=== PATIENT | male | born 1970 | race Caucasian/White ===

== ENCOUNTER 2023-01-07 14:20 | Emergency (ER) | payer MEDICAID, SELFPAY ==
[2023-01-07] VITALS (11 sets, daily range): BP systolic 80–133; BP diastolic 48–111; PULSE 77–118; RESP 18–102; TEMP 35.5; O2SAT 91–99; BMI 43.0
--- NOTE | 2023-01-07 14:33 | NURSING ---
NO OLD EKGS
--- NOTE | 2023-01-07 14:57 | EKG12_ITS ---
Test Reason : CP Blood Pressure : / mmHG Vent. Rate : 119 BPM Atrial Rate : 000 BPM P-R Int : 000 ms QRS Dur : 172 ms QT Int : 384 ms P-R-T Axes : 000 -70 095 degrees QTc Int : 540 ms Atrial fibrillation with rapid ventricular response Left axis deviation Non-specific intra-ventricular conduction block Minimal voltage criteria for LVH, may be normal variant ( [place] product ) Lateral infarct , age undetermined Inferior infarct , age undetermined Confirmed by CRISTIAN CALVERT ([id number]), metropolitan editor DALY MARES ([id number]) on 01/08/2023 11:23:21 AM Referred By: Confirmed By:CRISTIAN CALVERT
[2023-01-07 15:06] LABS: Absolute Neutrophil Count 5.2 X10^3/uL (2.0-7.7); Basophil# 0.04 X10^3/uL; Basophil% 0.5 % (0-1); Eosinophil# 0.24 X10^3/uL; Hematocrit 42.2 % (40-54); Hemoglobin 14.5 g/dL (13.0-16.5); Lymphocyte % 22.6 % (19-41); Mean Corp Hgb Conc 34.4 g/dL (32-36); Mean Corpuscular Hgb 29.8 pg (27.0-32.0); Mean Corpuscular Volume 86.7 fL (80-94); Mean Platelet Vol. 10.9 fl (6.2-12.0); Monocyte% 8.8 % (0-10); NRBC Flagged by Analyzer 0 % (0-5); Neutrophil # 5.16 X10^3/uL (2.7-7.7); Neutrophil % 64.7 % (47-70); Platelet Count 278 K/mm3 (150-450); RBC Distribution Width SD 43.9 fl (35.1-43.9); Red Blood Count 4.87 M/mm3 (4.6-6.2)
--- NOTE | 2023-01-07 15:14 | RAD_ITS ---
STUDY: X-RAY CHEST REASON FOR EXAM: Male, 52 years old. Chest pain TECHNIQUE: Single AP portable view of the chest. COMPARISON: None. FINDINGS: EKG electrodes are seen. The lungs are clear and expanded. There is no demonstrated pleural abnormality. There is mild cardiac enlargement. Normal mediastinum and vishal. Normal visualized pulmonary arteries. Normal visualized aortic arch and descending thoracic aorta. There are degenerative changes of the visualized thoracic spine. Normal visualized ribs, clavicles, and shoulders. There is no demonstrated abnormality of the visualized soft tissue structures of the upper abdomen. RAD/Chest 1 View (Portable) IMPRESSION: Cardiomegaly. Electronically Signed: Austin Spicer MD at 15:33 EDT ,
--- NOTE | 2023-01-07 15:18 | EDS_ITS ---
HPI History of Present Illness Chief Complaint: Chest Pain Narrative Narrative: 52-year-old male presenting with chest pain. He has a history of A-fib, [place], cardiac stent. He sees a cork compounder out in [place]. He states he is on sotalol and Eliquis. He states his heart rate is never really been under control. Yesterday he states about a pulse ox and noted his heart rate was anywhere from 50-1 80. He has been having intermittent chest pressure, shortness of breath, nausea, lightheadedness. Patient reports that when these episodes happen he gets a cough and has posttussive emesis sometimes. Denies fever or chills. He does admit to some shortness of breath. Patient states has been able to get follow-up with his cork compounder due to being unable to get into office. [facility] Medical History Afib Diabetes Home Medications apixaban 5 mg tablet (Eliquis) 5 mg PO Q12H 01/07/23 [History Last Taken Unknown] atorvastatin 40 mg tablet 40 mg PO DAILY 01/07/23 [History Last Taken Unknown] levothyroxine 50 mcg tablet 50 mcg PO DAILY 01/07/23 [History Last Taken
--- NOTE | 2023-01-07 15:18 | ED.VIS.CHEST ---
HPI History of Present Illness Chief Complaint: Chest Pain Narrative Narrative: 52-year-old male presenting with chest pain. He has a history of A-fib, [place], cardiac stent. He sees a pharmacy technician out in [place]. He states he is on sotalol and Eliquis. He states his heart rate is never really been under control. Yesterday he states about a pulse ox and noted his heart rate was anywhere from 50-1 80. He has been having intermittent chest pressure, shortness of breath, nausea, lightheadedness. Patient reports that when these episodes happen he gets a cough and has posttussive emesis sometimes. Denies fever or chills. He does admit to some shortness of breath. Patient states has been able to get follow-up with his pharmacy technician due to being unable to get into office. [facility] Medical History Afib Diabetes Home Medications apixaban 5 mg tablet (Eliquis) 5 mg PO Q12H 01/07/23 [History Last Taken Unknown] atorvastatin 40 mg tablet 40 mg PO DAILY 01/07/23 [History Last Taken Unknown] levothyroxine 50 mcg tablet 50 mcg PO DAILY 01/07/23 [History Last Taken Unknown] Allergy/AdvReac Type Severity Reaction Status Date / Time Penicillins Allergy Swelling Verified 01/07/23 14:23 sulfur dioxide Allergy Swelling Verified 01/07/23 14:23 Surgical History Stented coronary artery Social History Smoking Status: Never smoker ROS ROS ED Constitutional Constitutional ED: Denies chills, fever(s) or sweats Eyes Eyes: Denies blurry vision or change in vision ENT ENT ED: Denies ear pain or sore throat Cardiovascular Cardiovascular: Reports chest pain, palpitations and racing heartbeat Respiratory/Chest Respiratory/Chest: Reports cough and dyspnea; Denies sputum Gastrointestinal Gastrointestinal: Reports nausea and vomiting; Denies abdominal pain, constipation or diarrhea Genitourinary Genitourinary ED: Denies dysuria, hematuria or urinary frequency Musculoskeletal Musculoskeletal: Denies arthralgias, myalgias or neck pain Integumentary Denies abscess, Abrasions or rash Neurologic Neurologic: Denies headache(s), paresthesias or weakness Psychiatric Psychiatric: Denies anxiety, depression, suicidal ideation or suicidal thoughts Endocrine Endocrinology: Denies polydipsia or polyuria EXAM Physical Exam Const Vital Signs: 01/07/23 14:24 01/07/23 14:44 01/07/23 14:45 Temperature 96 F L Temperature Source Temporal Pulse Rate 104 H 118 H Respiratory Rate 18 18 Respiratory Effort Short of Breath Blood Pressure 121/111 H 124/80 H Blood Pressure Mean 114 94 Pulse Ox 96 94 Oxygen Delivery Method Room Air Room Air 01/07/23 15:01 01/07/23 15:23 01/07/23 15:31 Temperature Temperature Source Pulse Rate 107 H 116 H Respiratory Rate 31 H Respiratory Effort Blood Pressure 116/63 Blood Pressure Mean 80 Pulse Ox 93 Oxygen Delivery Method Room Air Room Air 01/07/23 15:36 01/07/23 15:36 01/07/23 15:49 Temperature Temperature Source Pulse Rate 104 H 109 H 103 H Respiratory Rate 29 H 26 H Respiratory Effort Blood Pressure 93/48 L 96/66 Blood Pressure Mean 63 76 Pulse Ox 91 93 Oxygen Delivery Method Room Air Room Air 01/07/23 16:10 01/07/23 16:12 Temperature Temperature Source Pulse Rate 92 Respiratory Rate 102 H Respiratory Effort Blood Pressure 80/57 L 83/62 L Blood Pressure Mean 64 69 Pulse Ox 98 Oxygen Delivery Method Room Air Positive well nourished General Appearance ED: NAD HEENT Reports moist mucous membranes normocephalic Eyes PERRL and EOMs intact bilaterally Resp normal respiratory effort Auscultation: Negative for rales, rhonchi or wheezes Cardio Rate: tachycardic Rhythm: abnormal rhythm irregularly irregular GI normal to inspection, nondistended, normoactive bowel sounds Neuro oriented x3 and CN's II-XII intact bilaterally Sensorium / Orientation: awake and alert Psych mental status grossly normal Skin no rashes or lesions noted Heart Score History: Slightly/Non-Suspicious ECG: Normal Age: >45 - <65 years Risk Factors: >/= 3 Risk Factors or History of CAD Troponin: </= Normal Limit Score: 3 MDM MDM MDM Narrative Medical decision making narrative: Patient presenting in A-fib which is going from 100-1 20 on the monitor. He is having chest pain intermittently as well as lightheadedness and dizziness. Differential includes acute coronary syndrome, CHF, pneumonia, dehydration, electrolyte abnormalities. PE considered however the patient is anticoagulated on Eliquis. EKG atrial fibrillation with rapid ventricular response at 119 bpm without sign of ischemic change. Chest x-ray my interpretation shows cardiomegaly. CBC was obtained to assess white blood cell count, hemoglobin, platelets. BMP to assess renal function, electrolytes, glucose. High-sensitivity troponin was ordered to assess for ischemia. Initially a D-dimer was ordered but after discussing this with the patient he was able to present a medicine list which showed he was on Eliquis and he had missed any doses. This was canceled however some reason it was still resulted. This is within normal limits. Patient got 10 mg of Cardizem and his blood pressure did drop for short while at 83/62 is now improving into the 90s. He was given a liter bolus and he is on a second liter now.I did want to be cautious as the patient has a history of cardiomyopathy after looking at his outside records and has a EF of 35%. Patient previously was on amiodarone therapy however this caused him to become hypothyroid and had to be switched to sotalol after admission. He supposed to have a follow-up with his pharmacy technician however he states he cannot get in. It was recommended if his repeat echo showed a EF of less than 35% that he get a DDDR ICD out of having risk for sudden . I discussed this with Dr. Jorge who felt the patient was complex and needed to be transferred to another facility. [facility] transfer line was paged as his previous work-up was in [facility] system. Impression: 1. Chest pain 2. Cardiomegaly 3. A-fib with RVR 4. History of cardiomyopathy Lab Data Attestation: I reviewed the patient's lab results. Labs: Laboratory Results - last 24 hr 01/07/23 15:00 WBC 8.0 RBC 4.87 Hgb 14.5 Hct 42.2 MCV 86.7 MCH 29.8 MCHC 34.4 RDW Std Deviation 43.9 RDW Coeff of Bernard 14.0 Plt Count 278 MPV 10.9 Immature Gran % (Auto) 0.400 Neut % (Auto) 64.7 Lymph % (Auto) 22.6 [place] % (Auto) 8.8 Eos % (Auto) 3.0 Baso % (Auto) 0.5 Absolute Neuts (auto) 5.2 Absolute Lymphs (auto) 1.80 Nucleated RBC % 0 D-Dimer Quant (PE/DVT) < 0.27 L Sodium 139 Potassium 3.8 Chloride 108 H Carbon Dioxide 22.0 Anion Gap 9 BUN 22 H Creatinine 1.26 Estim Creat Clear Calc 76.98 Est GFR (MDRD) Af Amer 78 Est GFR (MDRD) Non-Af 64 BUN/Creatinine Ratio 17.5 Glucose 176 H Calcium 9.7 Troponin I High Sens 60 Radiography Diagnostic Testing: Clinical Impression(s) from Imaging Studies Chest X-Ray 01/07/23 15:14 IMPRESSION: Cardiomegaly. Electronically Signed: Austin Spicer MD at 15:33 EDT , Discharge Plan Triage Chief Complaint: Chest Pain ED Provider: Bryan Ardon Dx/Rx/DC Orders Prescriptions: No Action atorvastatin 40 mg tablet 40 mg PO DAILY Patient Comments: Take 1 tablet by mouth daily at bedtime. levothyroxine 50 mcg tablet 50 mcg PO DAILY Patient Comments: TAKE 1 TABLET BY MOUTH ONCE DAILY Eliquis 5 mg tablet 5 mg PO Q12H Patient Comments: Take 1 tablet by mouth twice a day Primary Care Provider: Care Physician,No Primary Referrals: Care Physician,No Primary [Primary Care Provider] -
[2023-01-07 15:26] LABS: Anion Gap 9 (5-15); BUN 22 mg/dL (7-18); BUN/Creat Ratio 17.5 RATIO (10-20); Calcium,Total 9.7 mg/dL (8.5-10.1); Chloride 108 mmol/L (98-107); Creatinine, Serum 1.26 mg/dL (0.70-1.30); EST Glomerular Filtration Rate 64 mL/min (>60); Est Glom Filt Rate - Afr Amer 78 mL/min (>60); Estimated Creatinine Clearance 76.98 ml/min; Glucose 176 mg/dL (74-106); Potassium 3.8 mmol/L (3.5-5.1); Sodium Level 139 mmol/L (136-145); Troponin-I HS 60 pg/mL (3.0-78.0)
[2023-01-07] MEDS: dilTIAZem 25 MG/5 ML Vial 10 MG IV BOLUS (15:34)
[2023-01-07] MEDS: 0.9% Normal Saline 1,000 ML 999 ML IV (15:48)
[2023-01-07 15:53] LABS: D-Dimer Quantitative (DVT/PE) < 0.27 FEU/ug/m (0.27-0.49)
--- NOTE | 2023-01-07 16:25 | NURSING ---
CALLED [facility] TRANSFER LINE TO SEND PATIENT TO [place]
[2023-01-07] MEDS: 0.9% Normal Saline 1,000 ML 150 ML IV (17:00)
--- NOTE | 2023-01-07 17:06 | ED.RN ---
pt uncomfortable in bed, offered to place a something under pt to try and help. pt said no that's ok.
--- NOTE | 2023-01-07 17:08 | ED.RN ---
family frustrated, they would like to establish pt with cardiology at [facility], cardiology stating that he needs transferred. daughter employee at [employer], states she would like her dad to stay at [employer] so he is close to home and is not alone.
[2023-01-07 17:39] LABS: Troponin-I HS 53 pg/mL (3.0-78.0)
--- NOTE | 2023-01-07 18:22 | NURSING ---
CALLED [facility] ABOUT BED STATUS, NO BED YET
== END 2023-01-07 18:41 | disposition left against medical advice (07) ==
LOC: ED 15:15
PROVIDERS: Emergency Provider Student in an Organized Health Care Education/Training Program; Visit Provider Student in an Organized Health Care Education/Training Program
DX: I48.91 Unspecified atrial fibrillation (principal); I42.9 Cardiomyopathy, unspecified; I51.7 Cardiomegaly; I25.2 Old myocardial infarction; Z95.5 Presence of coronary angioplasty implant and graft; Z79.01 Long term (current) use of anticoagulants; Z79.899 Other long term (current) drug therapy; Z53.29 Procedure and treatment not carried out because of patient's decision for other reasons
CPT/HCPCS: 71045; 80048; 84484; 85025; 85379; 93005; 96374; 99284; J7030; A4216